=== PATIENT | male | born 2000 | race Caucasian/White ===

== ENCOUNTER 2020-03-09 20:59 | Emergency (ER) | payer OTHER, SELFPAY ==
[2020-03-09 21:04] VITALS: BP 128/67; PULSE 86; RESP 14; TEMP 36.3; O2SAT 98
--- NOTE | 2020-03-09 21:11 | ED.WOUNDLAC ---
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 Pt with laceration that is small, denies active bleeding. Pt is UTD on his tetanus. No numbness. No difficulty with bending. Pt has had some bleeding with movement. Related Data Allergies Allergy/AdvReac Type Severity Reaction Status Date / Time cefdinir Allergy Mild Verified 03/11/16 16:00 Review of Systems Review of Systems: Narrative: CONSTITUTIONAL: Denies fever GASTROINTESTINAL: Denies nausea SKIN: Denies rash MUSCULOSKELETAL: Denies back pain PMFSH Past Medical History Medical History (Updated 03/09/20 @ 21:31 by Joy Boyd MD) No pertinent past medical history Surgical History Surgical History (Updated 03/09/20 @ 21:23 by Joy Boyd MD) History of tonsillectomy Social History Social History (Updated 03/09/20 @ 21:23 by Joy Boyd MD) Substance use: never Living arrangements: with family Gender identity (if verbalized by the patient): Male Exam Narrative: Exam Narrative: GENERAL: Awake, alert, conversant HEAD: Normocephalic, atraumatic. EYES: PERRLA and EOMI. ENT: Nares clear, no rhinorrhea or epistaxis. Mucous membranes moist. NECK: Supple. CHEST: No respiratory distress, breathing even and non labored HEART: Regular rate, sinus rhythm ABDOMEN:Non distended, non tender EXTREMITIES: Normal range of motion. No edema. SKIN: Warm, dry, no rash. 0.25 cm superficial laceration distal phalynx, tip of second left digit. No active bleeding. No tissue avulsion or nail injury. Radial pulse 2+. Intact sensation m/u/r nerve distribution. NEURO:No focal deficits. Alert and oriented x3 Course Vital Signs Vital signs: Vital Signs Temperature 36.3 C L 03/09/20 21:04 Pulse Rate 86 03/09/20 21:04 Respiratory Rate 14 03/09/20 21:04 Blood Pressure 128/67 03/09/20 21:04 Pulse Oximetry 98 03/09/20 21:04 Temperature 36.3 C L 03/09/20 21:04 Pulse Rate 86 03/09/20 21:04 Respiratory Rate 14 03/09/20 21:04 Blood Pressure 128/67 03/09/20 21:04 Pulse Oximetry 98 03/09/20 21:04 MDM - Wound/Laceration MDM Narrative Medical decision making narrative: Pt presented with a superficial laceration to distal second digit. No active bleeding. Not deep enough to warrant sutures. Pt with dermabond applied. Tetanus updated in 2017 per chart review. Pt then discharged home. Differential Diagnosis Differential diagnosis: Likely laceration and avulsion of skin Discharge Plan Discharge Clinical Impression: Laceration Patient Disposition: Home, Self-Care Condition: Stable Instructions: Skin Adhesive Care (ED) Additional Instructions: Please keep your wound clean and dry. Please do not soak it in any water. You may wash with antibacterial soap and pat it to dry. Please do not scrub the wound as this will remove the adhesive. Please watch for signs of infection. Signs of infection including redness, purulent drainage from the site, worsening pain. If you feel any of these are present, please return to the emergency department for reassessment. Follow-up/Referrals: PHYSICIAN,IMPROVEMENT ENGINEER [Primary Care Provider] - Stand Alone Forms: Work/School Release IP
== END 2020-03-09 22:21 | disposition home or self-care (01) ==
LOC: ANHED 21:47
PROVIDERS: Emergency Provider Emergency Medicine; PCP Family Medicine
DX: S61.210A Laceration without foreign body of right index finger without damage to nail, initial encounter (principal); W26.9XXA Contact with unspecified sharp object(s), initial encounter; Y93.G1 Activity, food preparation and clean up
CPT/HCPCS: 12001; 99282

== ENCOUNTER 2020-04-30 04:32 | Observation (INO) | payer OTHER, SELFPAY ==
--- NOTE | ~2020-04-30 | CT_ITS ---
EXAMINATION: CT abdomen pelvis w con DATE: 04/30/2020 06:16 INDICATION: Abdominal pain TECHNIQUE: Computed tomography (CT) of the abdomen and pelvis was performed with 100 mL Omnipaque-350 intravenous contrast. Automated exposure control and iterative reconstruction technique were employe d. The dose-length product was 300.65 mGy-cm. COMPARISON: CT dated 06/28/2018 FINDINGS: Lung bases are clear. Heart size is normal. No pericardial or pleural effusion. Liver, gallbladder, p ancreas, bilateral adrenal glands and kidneys are normal. Mild splenomegaly measuring 14.0 cm in maxi mal length. Bowels including the appendix are normal. Bladder is normal. Small fat-containing right i nguinal hernia. No free intraperitoneal gas or fluid. No pathologically enlarged abdominal or pelvic lymphadenopathy. Bones are unremarkable. IMPRESSION: 1. No acute intra-abdominal/pelvic process. 2. Nonspecific mild splenomegaly. 2. Small fat-containing right inguinal hernia. Reviewed, dictated and finalized at location B. [employer]ITTER CHIEF
[2020-04-30 04:36] VITALS: BP 131/91; PULSE 82; RESP 18; TEMP 36.6; O2SAT 98
--- NOTE | 2020-04-30 04:44 | PC.NURSE ---
RN in to initiate IV. Pt. stops RN and asked if he can make a phone call first.
[2020-04-30 05:30] LABS: Basophils Percent Auto 0.2 % (0.2-1.2); Eosinophils Percent Auto 0.2 % (0-4.4); Hematocrit 47.2 % (42.0-52.0); Hemoglobin 16.2 g/dL (14.0-18.0); Immature Granulocyte Absolute 0.01 K/mm3 (0.00-0.031); Immature Granulocyte Percent A 0.2 % (0-0.5); Lymphocytes Absolute Auto 1.29 K/mm3 (0.9-3.2); Lymphocytes Percent Auto 22.1 % (18.3-44.2); Mean Corpuscular HGB Conc 34.3 g/dl (32-36); Mean Corpuscular Hemoglobin 29.8 pg (26-34); Mean Corpuscular Volume 86.8 fl (80-100); Mean Platelet Volume 9.2 fl (7.4-10.4); Monocytes Absolute Auto 0.5 K/mm3 (0.1-0.6); Neutrophils Absolute Auto 4.1 K/mm3 (1.3-6.7); Neutrophils Percent Auto 69.3 % (45.5-73.1); Platelet Count Result 255 k/mm3 (150-375); Red Blood Count 5.44 M/mm3 (4.6-6.20); White Blood Count 5.8 K/mm3 (4.5-10.0)
[2020-04-30 05:34] LABS: Add Urine Microscopic? YES; Appearance Urine Clear (Clear); Bilirubin Urine Negative (Negative); Blood Urine Negative (Negative); Color Urine Yellow (Yellow); Glucose Urine UA Negative (Negative); Ketones Urine 2+ mg/dL (Negative); Leukocyte Esterase Ur Negative LEU/UL (Negative); Mucus Urine Heavy /lpf; Nitrate Urine Negative (Negative); Protein Urine 2+ mg/dL (Negative); Urobilinogen Urine Negative mg/dL (<2.0); WBC Urine 0-3 /hpf
[2020-04-30] MEDS: ONDANSETRON INJ 4 MG/2 ML VIAL IV PUSH ×3 (05:40→21:17)
[2020-04-30] MEDS: SODIUM CHLORIDE 0.9% IV 1,000 ML 999 ML IV CONT (05:41)
[2020-04-30 05:46] LABS: Alanine Aminotransferase 23 U/L (4-50); Albumin Level 4.6 g/dL (3.5-5.1); Alkaline Phosphatase 82 U/L (38-126); Anion Gap 14 mmol/L (8-16); Aspartate Amino Transferase 29 U/L (17-59); Blood Urea Nitrogen 14 mg/dL (9-20); Calcium 9.8 mg/dL (8.4-10.2); Carbon Dioxide 22 mmol/L (22-30); Chloride 106 mmol/L (98-107); Estimated CRCL calculation 126 ml/min; Estimated Glomerular Filt Rate > 60; Glucose 106 mg/dL (75-110); Lipase 45 U/L (23-300); Potassium 3.2 mmol/L (3.4-5.0); Sodium 142 mmol/L (137-145)
--- NOTE | 2020-04-30 05:46 | ED.GENADULT ---
HPI - General Adult General Chief complaint: Nausea/Vomiting/Diarrhea Stated complaint: covid +, vomiting nonstop Time Seen by Provider: 04/30/20 05:25 History of Present Illness HPI narrative: Patient 19-year-old gentleman who presents the emergency department with chief complaint of nausea vomiting and diarrhea. Patient reports he was diagnosed with COVID-19 and subsequently has been having chills body aches nausea vomiting and diarrhea. The patient reports she has been unable to keep any fluids down reports that he feels very weak and rundown. Patient states symptoms are not improved by anything nor they worsened by anything. Related Data Allergies Allergy/AdvReac Type Severity Reaction Status Date / Time cefdinir Allergy Mild Rash Verified 04/30/20 04:40 Review of Systems Review of Systems: Narrative: A 10 system review of systems was completed on the patient and is negative except for what is stated in the HPI. Nursing and ancillary documentation was reviewed. [facility] Past Medical History Medical History No pertinent past medical history Surgical History Surgical History History of tonsillectomy Social History Social History Substance use: never Gender identity (if verbalized by the patient): Male Exam Narrative: Exam Narrative: GENERAL: Well-appearing, well-nourished, and in no acute distress. HEAD: Normocephalic, atraumatic. EYES: PERRLA and EOMI. ENT: Nares clear, no rhinorrhea or epistaxis. Mucous membranes moist. NECK: Supple. CHEST: Clear to auscultation. No respiratory distress. HEART: Regular rate and rhythm. No murmur heard. Normal peripheral pulses. ABDOMEN: Soft, nontender, nondistended, normal active bowel sounds. EXTREMITIES: Normal range of motion. No edema. SKIN: Warm, dry, no rash. NEURO: No focal deficits. Alert and oriented x3. PSYCH: Normal mood and affect. Course Vital Signs Vital signs: Vital Signs Temperature 36.6 C 04/30/20 04:36 Pulse Rate 82 04/30/20 04:36 Respiratory Rate 18 04/30/20 04:36 Blood Pressure 131/91 H 04/30/20 04:36 Pulse Oximetry 98 04/30/20 04:36 Temperature 36.6 C 04/30/20 04:36 Pulse Rate 100 04/30/20 06:30 Respiratory Rate 17 04/30/20 06:30 Blood Pressure 111/74 04/30/20 06:30 Pulse Oximetry 97 04/30/20 06:30 Medical Decision Making Vital Signs Vital Signs: Vital Signs Temperature 36.6 C 04/30/20 04:36 Pulse Rate 82 04/30/20 04:36 Respiratory Rate 18 04/30/20 04:36 Blood Pressure 131/91 H 04/30/20 04:36 Pulse Oximetry 98 04/30/20 04:36 Temperature 36.6 C 04/30/20 04:36 Pulse Rate 100 04/30/20 06:30 Respiratory Rate 17 04/30/20 06:30 Blood Pressure 111/74 04/30/20 06:30 Pulse Oximetry 97 04/30/20 06:30 Lab Data Result diagrams: 04/30/20 05:21 04/30/20 05:21 Labs: Lab Results 04/30/20 04/30/20 04/30/20 Range/Units 05:21 05:21 05:21 WBC 5.8 (4.5-10.0) K/mm3 RBC 5.44 (4.6-6.20) M/mm3 Hgb 16.2 (14.0-18.0) g/dL Hct 47.2 (42.0-52.0) % MCV 86.8 (80-100) fl MCH 29.8 (26-34) pg MCHC 34.3 (32-36) g/dl RDW 12.0 (11.5-14.5) % Plt Count 255 (150-375) k/mm3 MPV 9.2 (7.4-10.4) fl Immature Gran % (Auto) 0.2 (0-0.5) % Neut % (Auto) 69.3 (45.5-73.1) % Lymph % (Auto) 22.1 (18.3-44.2) % [place] % (Auto) 8.0 (2.6-8.5) % Eos % (Auto) 0.2 (0-4.4) % Baso % (Auto) 0.2 (0.2-1.2) % Lymph # (Auto) 1.29 (0.9-3.2) K/mm3 [place] # (Auto) 0.5 (0.1-0.6) K/mm3 Eos # (Auto) 0.0 (0-0.3) K/mm3 Baso # (Auto) 0.0 (0.0-0.1) K/mm3 Abs Immat Gran (auto) 0.01 (0.00-0.031) K/mm3 Absolute Neuts (auto) 4.1 (1.3-6.7) K/mm3 Absolute Nucleated RBC 0.0 (0.0-0.012) K/mm3 Nucleated RBC %
[2020-04-30] MEDS: DICYCLOMINE HCL INJ 20 MG/2 ML VIAL IM (06:07)
[2020-04-30 06:30] VITALS: BP 111/74; PULSE 100; RESP 17; O2SAT 97
[2020-04-30] MEDS: LACTATED RINGERS 1,000 ML 999 ML IV CONT (08:14)
[2020-04-30] MEDS: PROMETHAZINE HCL 25 MG/ML AMPUL 12.5 MG IV PUSH (08:15)
[2020-04-30] MEDS: PANTOPRAZOLE SODIUM IV 40 MG VIAL IV PUSH (08:15)
--- NOTE | 2020-04-30 09:48 | ADMGEN ---
This patient, Luis Carlos Amador, was admitted to 3 [facility] Room 310-01. Patient/family oriented to hospital policies and general routines including ID bracelet, bed and alarms, visiting hours, pain management, procedures, bathroom and other care routines, personal items, smoking policy, room service/diet, and visiting hours. Information on how to activate the Rapid Response Team has been discussed. Patient/Family are encouraged to report perceived risks to care and to ask questions if they do not understand what they are told or what they should do.
[2020-04-30] MEDS: LACTATED RINGERS 1,000 ML 125 ML IV CONT (09:50)
[2020-04-30 09:54] VITALS: BP 111/78; PULSE 75; RESP 15; O2SAT 100
[2020-04-30] MEDS: metroNIDAZOLE 500 MG/ISO 100ML 500 MG/100 ML BAG 100 MG IVPB (09:54)
[2020-04-30 09:58] VITALS: BMI 22.8
[2020-04-30] MEDS: MORPHINE SULFATE (*CRX) 4 MG/ML INJ IV PUSH (10:18)
--- NOTE | 2020-04-30 11:33 | PM.IMHP ---
H&P: HPI History of Present Illness Date/Time: 04/30/20 11:33 Chief Complaint: abd pain Narrative: Luis Carlos Amador is a 19 year old male presenting to ED c/o abd pain, N/V, generalized malaise over last few days. Pt reports he recently tested positive for COVID. Pt reports subjective fevers, chills at home. Pt reports abd pain is mostly in LUQ although it is diffuse in nature. Pt reports he has had very poor appetite. Review of Systems Constitutional: Constitutional: Reports anorexia, Reports body ache(s), Reports chills, Reports fatigue, Reports fever(s), Reports headache(s), Reports lethargy, Reports malaise, Reports poor appetite, Reports weakness, Denies weight gain and Denies weight loss Eyes: Eyes: Reports no additional eye complaints ENT: Reports system reviewed and no additional complaints, except as documented Cardiovascular: Cardiovascular: Reports no additional cardiovascular complaints Respiratory: Respiratory: Reports no additional respiratory complaints Gastrointestinal: Gastrointestinal: Reports as per HPI Genitourinary: Genitourinary: Reports no additional male genitourinary complaints Musculoskeletal: Musculoskeletal: Reports no additional musculoskeletal complaints Integumentary/Breasts: Skin/Breast: Reports system reviewed and no additional complaints, except as docu Neurologic: Reports system reviewed and no additional complaints, except as documented Psychiatric: Psychiatric: Reports no additional psychiatric complaints Endocrine: Endocrine: Reports no additional endocrine complaints Hematologic/Lymphatic: Hematologic/Lymphatic: Reports no additional hematologic/lymphatic complaints Allergic/Immunologic: Allergic/Immunologic: Reports no additional allergic/immunologic complaints [facility] Past Medical History Medical History No pertinent past medical history Surgical History Surgical History History of tonsillectomy Social History Social History Smoking status: Never smoker Alcohol intake: never Substance use: current Substance use type: marijuana Last use: 4 days ago Gender identity (if verbalized by the patient): Male Spiritual care concerns: No Comments pt denies any FH of colorectal cancers, IBD Meds Home Medications and Allergies Home Medications Medication Instructions Recorded Confirmed Type dicyclomine 20 mg PO QID PRN #20 tablet 04/30/20 Rx escitalopram oxalate 10 mg PO HS 04/30/20 04/30/20 History loratadine [Wal-itin] 10 mg PO HS 04/30/20 04/30/20 History ondansetron 4 mg PO Q8H PRN #12 tablet 04/30/20 Rx Allergies Allergy/AdvReac Type Severity Reaction Status Date / Time cefdinir Allergy Mild Rash Verified 04/30/20 10:09 Vital Signs Vital Signs - 24 hr 04/30/20 04:36 04/30/20 06:30 04/30/20 09:54 Temperature 36.6 C Pulse Rate 82 100 75 Respiratory Rate 18 17 15 Blood Pressure 131/91 H 111/74 111/78 Pulse Oximetry 98 97 100 Exam Const: General: cooperative, well developed, alert, awake, Physically active, acute distress moderate, ill appearing, tired appearing and uncomfortable Nutritional Appearance: average body habitus Orientation/consciousness: patient oriented x3 Limitations: no limitations HENMT: Head: normal to inspection and atraumatic Ears: hearing grossly normal bilaterally General nose exam: Normal external nose present Face and sinus: normal facial exam Mouth: Yes Normal oral and palatal mucosa present and Yes dry mucous membranes Eyes: General: appearance normal, both eyes and all related structures Pupils: Equal, round and reactive pupils present EOM: EOMs intact bilaterally Neck: Neck: normal visual inspection, full ROM and no lymphadenopathy Chest: Chest palpation & inspection: normal inspection of the chest Resp: Effort & Inspection: n
[2020-04-30 12:00] VITALS: BP 114/66; PULSE 66; RESP 16; TEMP 36.6; O2SAT 99
--- NOTE | 2020-04-30 13:07 | PM.IMHP ---
H&P: HPI History of Present Illness Date/Time: 04/30/20 13:07 Chief Complaint: nausea and vomiting Narrative: Luis Carlos Amador is a 19 year old male Who got exposed to covid 19 approximately 2 weeks ago his roommate tested positive. The patient stated that as soon as his roommate tested positive he and his girlfriend isolated elsewhere. However the patient started having symptoms about 4 days ago. Was found was prior to him being sick. The patient stated time to [facility] and got tested to 3 days ago. He stated that he got a positive result about 6 hours ago. The patient had fever and chills with the T-max of 99.1?. He had nausea vomiting no diarrhea. The patient stated that he has not been able to keep any fluids down for her last 3 days. He has felt very weak and run down in his body aches. Patient had a CT of his abdomen today which shows no acute intra-abdominal pelvic process. Nonspecific mild pain likely small fat containing right inguinal hernia. The patient was given a bolus of IV fluids, IV Zofran, IM Bentyl, Zofran, Phenergan, IV Tylenol, Protonix, IV Levaquin and Flagyl. surgery has seen the patient and evaluated him and was evaluated by the surgical team. It was suggested that the patient does not have appendicitis most likely is related to his COVID and his care was transferred to the hospitalist team. Patient's potassium is 3.2. Patient is being admitted for observation 04/30/2020. Review of Systems Review of Systems: All systems reviewed & are unremarkable except as noted in HPI and below Constitutional: Constitutional: Reports as per HPI and Reports no additional constitutional complaints Eyes: Eyes: Reports as per HPI and Reports no additional eye complaints ENT: Reports system reviewed and no additional complaints, except as documented and Reports Normal hearing present Cardiovascular: Cardiovascular: Reports no additional cardiovascular complaints Respiratory: Respiratory: Reports no additional respiratory complaints and Reports no additional respiratory complaints Gastrointestinal: Gastrointestinal: Reports as per HPI and Reports no additional gastrointestinal complaints Musculoskeletal: Musculoskeletal: Reports no additional musculoskeletal complaints Integumentary/Breasts: Skin/Breast: Reports system reviewed and no additional complaints, except as docu and Reports as per HPI Neurologic: Reports system reviewed and no additional complaints, except as documented, Reports as per HPI and Reports Normal hearing present Psychiatric: Psychiatric: Reports no additional psychiatric complaints and Reports as per HPI Endocrine: Endocrine: Reports no additional endocrine complaints Hematologic/Lymphatic: Hematologic/Lymphatic: Reports no additional hematologic/lymphatic complaints Allergic/Immunologic: Allergic/Immunologic: Reports no additional allergic/immunologic complaints [facility] Past Medical History Medical History (Updated 04/30/20 @ 13:22 by Nneka Salas NP) Anxiety Surgical History Surgical History History of tonsillectomy Social History Social History (Updated 04/30/20 @ 13:24 by Nneka Salas NP) Social History: the patient has a significant other and 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 patient is a full code and designates his mother to be the durable power attorney at law for healthcare. He does not have any children. He is also taking college classes. He does not drink any alcohol but he admits using marijuana a couple times a week. He does not use any other illicit drugs. Smoking status: Never smoker Alcohol intake: never Substance use: current Substance use type: marijuana Last use: 4 days ago Gender identity (if verbalized by the patient): Male Spiritual care concerns: No Meds Home Medications and Allergies Home Medications Medication Instructions Recorded Confirmed Typ
[2020-04-30] MEDS: POTASSIUM BICARBONATE 25 MEQ TABEF 50 MEQ PO (15:43)
[2020-04-30 16:00] VITALS: BP 123/56; PULSE 64; RESP 16; TEMP 36.3; O2SAT 100
[2020-04-30] MEDS: LACTATED RINGERS 1,000 ML 75 ML IV CONT (18:35)
[2020-04-30 20:00] VITALS: BP 129/71; PULSE 67; RESP 18; TEMP 37; O2SAT 100
[2020-04-30] MEDS: ESCITALOPRAM OXALATE 10 MG TABLET PO (21:12)
[2020-04-30] MEDS: LORATADINE 10 MG TABLET PO (21:12)
[2020-05-01] VITALS: BP 106/84; PULSE 70; RESP 18; TEMP 36.6; O2SAT 99
[2020-05-01] MEDS: ONDANSETRON INJ 4 MG/2 ML VIAL IV PUSH ×3 (03:46→14:10)
[2020-05-01 04:00] VITALS: BP 114/67; PULSE 70; RESP 18; TEMP 36.8; O2SAT 100
[2020-05-01 06:06] LABS: Basophils Percent Auto 0.2 % (0.2-1.2); Eosinophils Absolute Auto 0.1 K/mm3 (0-0.3); Eosinophils Percent Auto 1.1 % (0-4.4); Hemoglobin 14.7 g/dL (14.0-18.0); Immature Granulocyte Absolute 0.01 K/mm3 (0.00-0.031); Immature Granulocyte Percent A 0.2 % (0-0.5); Lymphocytes Absolute Auto 1.13 K/mm3 (0.9-3.2); Lymphocytes Percent Auto 24.6 % (18.3-44.2); Mean Corpuscular HGB Conc 33.4 g/dl (32-36); Mean Corpuscular Hemoglobin 30.3 pg (26-34); Mean Corpuscular Volume 90.7 fl (80-100); Mean Platelet Volume 9.1 fl (7.4-10.4); Monocytes Absolute Auto 0.4 K/mm3 (0.1-0.6); Monocytes Percent Auto 9.4 % (2.6-8.5); Neutrophils Percent Auto 64.5 % (45.5-73.1); Platelet Count Result 188 k/mm3 (150-375); Red Blood Count 4.85 M/mm3 (4.6-6.20); Red Cell Distribution Width 12.2 % (11.5-14.5); White Blood Count 4.6 K/mm3 (4.5-10.0)
[2020-05-01 06:21] LABS: Alanine Aminotransferase 19 U/L (4-50); Albumin Level 3.9 g/dL (3.5-5.1); Alkaline Phosphatase 59 U/L (38-126); Anion Gap 7 mmol/L (8-16); Aspartate Amino Transferase 27 U/L (17-59); Bilirubin,Total 0.9 mg/dL (0.2-1.3); Blood Urea Nitrogen 10 mg/dL (9-20); Calcium 8.7 mg/dL (8.4-10.2); Carbon Dioxide 26 mmol/L (22-30); Chloride 107 mmol/L (98-107); Estimated CRCL calculation 126 ml/min; Estimated Glomerular Filt Rate > 60; Glucose 74 mg/dL (75-110); Lactate Dehydrogenase 287 U/L (313-618); Lipase 64 U/L (23-300); Magnesium 1.8 mg/dL (1.6-2.3); Phosphorus 2.7 mg/dL (2.5-4.5); Potassium 4.4 mmol/L (3.4-5.0); Sodium 140 mmol/L (137-145)
[2020-05-01 07:26] LABS: Thyroid Stimulating Hormone Reflex 0.377 uIU/mL (0.465-4.68)
[2020-05-01] MEDS: LACTATED RINGERS 1,000 ML 75 ML IV CONT (07:36)
[2020-05-01 08:00] VITALS: BP 118/56; PULSE 70; RESP 18; TEMP 36.6; O2SAT 100
--- NOTE | 2020-05-01 09:31 | PM.DS ---
DS: Admitting Diagnosis Admitting Diagnosis Admitting Diagnosis: COVID 19 infection DS: Discharge Diagnosis Discharge Diagnosis (1) COVID-19: Code(s): U07.1 - COVID-19 Status: Acute Assessment and Plan: feeling better, cont supportive care (2) Gastroenteritis: Code(s): K52.9 - Noninfective gastroenteritis and colitis, unspecified Status: Acute Assessment and Plan: symptoms improved, liliya diet, cont supportive care DS: Summary Hospital Course Reason for hospitalization: COVID infection, abdominal pain Hospital Course: Patient is a 19-year-old male that presented to the emergency department complaining of severe lower abdominal pain. The patient reports that the pain had been progressive over the last few days and he had recently tested positive for COVID. CT scan done in the emergency department was suggestive initially of possible appendicitis and given this the patient was admitted to the surgical service. Upon evaluation the following morning, including reviewing the CT scan, it was noted that the patient did not have appendicitis. The patient was treated supportively for his COVID infection, including IV hydration. Over the next day, the patient began to feel much improved and was able to tolerate a diet. The patient reports his abdominal pain is nearly resolved at this time. The patient will be discharged with instructions for continued supportive care. Status at Discharge Overall status at discharge: patient is progressing back to baseline Time Spent with Patient Time attestation: Total time spent providing and/or coordinating discharge services: Time spent: Less than 30 minutes Exam Const: General: cooperative, comfortable and no acute distress Nutritional Appearance: average body habitus Orientation/consciousness: patient oriented x3 Limitations: no limitations Resp: Effort & Inspection: normal respiratory effort Auscultation: clear to auscultation bilaterally Cardio: Jugular venous distension: no JVD Rate: regular rate Rhythm: regular rhythm GI: Inspection: normal to inspection and non-distended GI Palp: Yes Soft to palpation, No Tenderness to palpation present (GI), No Guarding due to palpation present (GI) and No Rigid due to palpation DS: Data Data Completed and Pending Labs on day of discharge: Labs from last 24 hours 05/01/20 05/01/20 05/01/20 05:43 05:43 05:43 WBC RBC Hgb Hct MCV MCH MCHC RDW Plt Count MPV Immature Gran % (Auto) Neut % (Auto) Lymph % (Auto) [place] % (Auto) Eos % (Auto) Baso % (Auto) Lymph # (Auto) [place] # (Auto) Eos # (Auto) Baso # (Auto) Abs Immat Gran (auto) Absolute Neuts (auto) Absolute Nucleated RBC Nucleated RBC % Sodium Potassium Chloride Carbon Dioxide Anion Gap BUN Creatinine Estim Creat Clear Calc Estimated GFR Glucose Calcium Phosphorus Magnesium Ferritin 102.00 Total Bilirubin AST ALT Alkaline Phosphatase Lactate Dehydrogenase Total Protein Albumin Lipase TSH (Reflex) 0.377 L Free T4 1.30 Total T3 Pending 05/01/20 05/01/20 05:43 05:43 WBC 4.6 RBC 4.85 Hgb 14.7 Hct 44.0 MCV 90.7 MCH 30.3 MCHC 33.4 RDW 12.2 Plt Count 188 MPV 9.1 Immature Gran % (Auto) 0.2 Neut % (Auto) 64.5 Lymph % (Auto) 24.6 [place] % (Auto) 9.4 H Eos % (Auto) 1.1 Baso % (Auto) 0.2 Lymph # (Auto) 1.13 [place] # (Auto) 0.4 Eos # (Auto) 0.1 Baso # (Auto) 0.0 Abs Immat Gran (auto) 0.01 Absolute Neuts (auto) 3.0 Absolute Nucleated RBC 0.0 Nucleated RBC % 0.0 Sodium 140 Potassium 4.4 Chloride 107 Carbon Dioxide 26 Anion Gap 7 L BUN 10 Creatinine 0.80 Estim Creat Clear Calc 126 Estimated GFR > 60 Glucose 74 L Calcium 8.7 Phosphorus 2.7 Magnesium 1.8 Ferritin Total Bilirubin 0.9 AST 27 ALT 19 A
[2020-05-01 10:14] LABS: Total Triiodothyronine (T3) 1.55 NG/ML (0.97-1.69)
[2020-05-01] MEDS: ENOXAPARIN 40 MG/0.4 ML SYRINGE SUB-Q (11:00)
[2020-05-01 12:00] VITALS: BP 120/63; PULSE 74; RESP 18; TEMP 37; O2SAT 100
== END 2020-05-01 14:45 | disposition home or self-care (01) ==
LOC: ANHED 08:08 → ANH3MEDSUR 08:49
PROVIDERS: Emergency Medicine; Nurse Practitioner; Admitting Provider Surgery; Emergency Provider General Practice; PCP Family Medicine; Visit Provider Surgery
DX: U07.1 COVID-19 (principal); K52.9 Noninfective gastroenteritis and colitis, unspecified; R16.1 Splenomegaly, not elsewhere classified; K40.90 Unilateral inguinal hernia, without obstruction or gangrene, not specified as recurrent; F12.90 Cannabis use, unspecified, uncomplicated; F41.9 Anxiety disorder, unspecified; E87.6 Hypokalemia; R11.10 Vomiting, unspecified
CPT/HCPCS: 36415; 74177; 80053; 81001; 82728; 83615; 83690; 83735; 84100; 84439; 84443; 84480; 85025; 96361; 96365; 96372; 96374; 96375; 96376; 99285; A9270; C9113; G0378; J0131; J0500; J1650; J2270; J2405; J2550; J7030; J7120; Q9967

== ENCOUNTER 2020-06-24 15:57 | Emergency (ER) | payer OTHER, SELFPAY ==
[2020-06-24 16:01] VITALS: BP 135/81; PULSE 103; RESP 16; TEMP 36.3; O2SAT 100
--- NOTE | 2020-06-24 17:54 | ED.GENADULT ---
HPI - General Adult General Chief complaint: Skin/Abscess/Foreign Body Stated complaint: demarcus-anal cyst Time Seen by Provider: 06/24/20 16:14 History of Present Illness HPI narrative: Patient is a 19-year-old male otherwise healthy who comes into the ED today with concerns for an abscess on his rectum. Patient reports that he noticed a painful red area on the top part of his rectum for the last 2 days. He was seen at urgent care yesterday and was prescribed clindamycin. He comes to the ED today because symptoms seem to be worsening. He otherwise denies any fevers chills or any systemic symptoms. There has been some drainage from the area. Related Data Home Medications Medication Instructions Recorded Confirmed escitalopram oxalate 10 mg PO HS 04/30/20 04/30/20 loratadine [Wal-itin] 10 mg PO HS 04/30/20 04/30/20 clindamycin HCl 06/24/20 Allergies Allergy/AdvReac Type Severity Reaction Status Date / Time cefdinir Allergy Mild Rash Verified 06/24/20 16:03 Review of Systems Constitutional: Constitutional: Reports as per HPI, Denies fever(s), Denies night sweats and Denies weakness Cardiovascular: Cardiovascular: Denies chest pain, Denies edema, Denies leg edema, Denies dyspnea and Denies orthopnea Respiratory: Respiratory: Denies cough and Denies dyspnea Gastrointestinal: Gastrointestinal: Denies abdominal pain, Denies constipation, Denies diarrhea, Denies nausea and Denies vomiting Musculoskeletal: Musculoskeletal: Denies abnormal gait, Denies back pain, Denies numbness and Denies tingling Integumentary/Breasts: Comments: See HPI for gluteal abscess Neurologic: Denies Abnormal speech present, Denies abnormal gait, Denies numbness, Denies tingling and Denies weakness Psychiatric: Psychiatric: Denies homicidal ideation and Denies suicidal ideation [facility] Past Medical History Medical History (Updated 06/24/20 @ 18:03 by Mick Chris PA-C) Anxiety Surgical History Surgical History History of tonsillectomy Social History Social History (Updated 04/30/20 @ 13:24 by Nneka Salas NP) Social History: the patient has a significant other and 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 patient is a full code and designates his mother to be the durable power litigation attorney for healthcare. He does not have any children. He is also taking college classes. He does not drink any alcohol but he admits using marijuana a couple times a week. He does not use any other illicit drugs. Smoking status: Never smoker Alcohol intake: never Substance use: current Substance use type: marijuana Last use: 4 days ago Gender identity (if verbalized by the patient): Male Spiritual care concerns: No Exam Const: General: cooperative, healthy appearing, comfortable, no acute distress, well developed, alert, awake and Physically active Orientation/consciousness: patient oriented x3 HENMT: Head: normal to inspection, normocephalic and atraumatic Ears: external ears normal General nose exam: Normal external nose present Eyes: Pupils: Equal, round and reactive pupils present EOM: EOMs intact bilaterally Neck: Neck: normal visual inspection Chest: Chest palpation & inspection: normal inspection of the chest and no tenderness Resp: Effort & Inspection: normal respiratory effort and able to speak in complete sentences Auscultation: clear to auscultation bilaterally Cardio: Rate: regular rate Rhythm: regular rhythm GI: Inspection: normal to inspection GI Palp: No abdominal tenderness : General: Yes no CVA tenderness Back/Spine/Pelvis: Back: no CVA tenderness Skin: General skin exam: normal color and no rashes or lesions noted Lesions: no lesions Other: Superior left gluteal cleft region is a 1 cm x 3 cm fluctuant area with some mild surrounding erythema. Neuro: General: patient oriented x3, no focal motor deficits and
== END 2020-06-24 18:24 | disposition home or self-care (01) ==
PROVIDERS: Emergency Provider Emergency Medicine; PCP Family Medicine
DX: L02.31 Cutaneous abscess of buttock (principal)
CPT/HCPCS: 10061; 99282